=== PATIENT | male | born 1970 | race African-American/Black ===

== ENCOUNTER 2016-12-25 23:46 | Emergency (ER) | payer MEDICAID ==
[~2016-12-25] VITALS: Ht 185.4 cm; Wt 80.0 kg
[~2016-12-25 23:46] MED LIST: HYDR-523; IBUP-1636
[2016-12-25 23:48] VITALS: BP 144/104
== END 2016-12-26 00:15 | disposition left against medical advice (07) ==
LOC: ER 12-26 00:02
DX: Z53.21 Procedure and treatment not carried out due to patient leaving prior to being seen by health care provider (principal); E11.9 Type 2 diabetes mellitus without complications; I10 Essential (primary) hypertension; F17.210 Nicotine dependence, cigarettes, uncomplicated; F12.10 Cannabis abuse, uncomplicated; F10.20 Alcohol dependence, uncomplicated

== ENCOUNTER 2021-09-18 02:23 | Emergency (ER) | payer MEDICAID ==
[~2021-09-18] VITALS: Ht 172.7 cm; Wt 73.0 kg
[2021-09-18] MEDS ORDERED: LABETALOL HCL 100MG TABLET PO ONE (03:00)
[2021-09-18 03:41] VITALS: BP 132/87
== END 2021-09-18 03:52 | disposition home or self-care (01) ==
LOC: ER 02:23
DX: E11.22 Type 2 diabetes mellitus with diabetic chronic kidney disease (principal); I12.0 Hypertensive chronic kidney disease with stage 5 chronic kidney disease or end stage renal disease; N18.6 End stage renal disease; F31.9 Bipolar disorder, unspecified; F12.10 Cannabis abuse, uncomplicated; Z99.2 Dependence on renal dialysis
CPT/HCPCS: 93005; 99283

== ENCOUNTER 2021-12-01 23:28 | Emergency (ER) | payer MEDICAID ==
[~2021-12-01] VITALS: Ht 172.7 cm; Wt 75.0 kg
[2021-12-01 23:40] VITALS: BP 179/82
[2021-12-02 00:46] LABS: BASOPHILS % 0.9 % (0.0-2.0); EOSINOPHILS % 1.8 % (0.0-5.0); HEMATOCRIT. 34.1 % (42.0-52.0); HEMOGLOBIN. 11.3 g/dL (14.0-18.0); LYMPHOCYTES % 16.5 % (20.0-50.0); MEAN CORPUSCULAR HEMOGLOBIN 35.1 pg (28.0-32.0); MEAN CORPUSCULAR VOLUME 106.4 fL (80.0-94.0); MEAN PLATELET VOLUME 8.3 fl (7.4-10.4); MONOCYTES % 6.7 % (2.0-8.0); NEUTROPHILS % 74.1 % (40.0-76.0); PLATELET 177 x1000/uL (130-400); RED BLOOD CELL COUNT 3.21 mill/uL (4.7-6.1); RED CELL DISTRIBUTION WIDTH 13.6 % (11.6-14.6)
[2021-12-02 00:52] LABS: BG BASE EXCESS -4.5 mmol/L (-2.0-2.0); BG CARBOXYHEMOGLOBIN 2.9 % (0.5-1.5); BG DEOXYHEMOGLOBIN 3.4 % (0.0-5.0); BG FRACTION INSPIRED OXYGEN 21; BG HCO3 ACT 20.9 mmol/L (22.0-26.0); BG METHEMOGLOBIN 0.3 % (0.0-1.5); BG OXYGEN SATURATION 96.5 % (92.0-98.5); BG OXYHEMOGLOBIN 93.4 % (94.0-97.0); BG PCO2 39.6 mmHg (35.0-45.0); BG PO2 87.2 mmHg (75.0-100.0); BG SAMPLE SITE RIGHT RADIAL; BG TOTAL HEMOGLOBIN 11.9 g/dL (12.0-18.0); BG VENT MODE ROOM AIR
[2021-12-02 00:54] LABS: CHLORIDE 109 mEq/L (98-107)
== END 2021-12-02 01:20 | disposition home or self-care (01) ==
LOC: ER 23:28 → CANBEDREQ 12-02 11:19
DX: R07.2 Precordial pain (principal); R06.02 Shortness of breath; I12.0 Hypertensive chronic kidney disease with stage 5 chronic kidney disease or end stage renal disease; E11.22 Type 2 diabetes mellitus with diabetic chronic kidney disease; N18.6 End stage renal disease; Z99.2 Dependence on renal dialysis; Z20.822 Contact with and (suspected) exposure to COVID-19
CPT/HCPCS: 36415; 36600; 71045; 80053; 82375; 82805; 83880; 84484; 85025; 87426; 93005; 99285; C9803